=== PATIENT | female | born 1995 | race Asian ===

== ENCOUNTER 2018-05-11 18:39 | Emergency (ER) | payer SELFPAY ==
[~2018-05-11] VITALS: Ht 160 cm; Wt 59.0 kg
[2018-05-11 18:49] VITALS: BP 125/72
--- NOTE | 2018-05-11 19:11 | NUR ---
PATIENT BIBA TO BED 8 AT THIS TIME
--- NOTE | 2018-05-11 19:11 | NUR ---
BIB EMS. PT STATES LUQ ABD PAIN, BODY SHAKES AND CARMONA. UPON ER ARRIVAL. PT STATES ABD PAIN GONE AND CARMONA REMAINS. VSS. POSITIONED IN BED FOR COMFORT. ER MD AWARE. CONTINUE TO MONITOR.
--- NOTE | 2018-05-11 19:39 | NUR ---
Dr. Martínez evaluating patient at bedside.
--- NOTE | 2018-05-11 20:14 | NUR ---
Patient discharged with v/s stable. Written and verbal after care instructions given and explained. Patient verbalized understanding. Ambulatory with steady gait. All questions addressed prior to discharge. Advised to follow up with PMD.
== END 2018-05-11 20:14 | disposition home or self-care (01) ==
LOC: MED 18:39
DX: R07.89 Other chest pain (principal)
CPT/HCPCS: 81002; 81025; 99282